=== PATIENT | female | born 1980 | race Hispanic/Latino ===

== ENCOUNTER → 2018-09-26 17:33 | Outpatient (CLI) | payer OTHER, SELFPAY ==
[2018-09-26 19:26] LABS: HCG Quantitative /Beta subunit 5975 mIU/mL
== END ==
PROVIDERS: Family Provider Nurse Practitioner; PCP Family Medicine; Visit Provider Nurse Practitioner Family
DX: N92.6 Irregular menstruation, unspecified (principal)
CPT/HCPCS: 36415; 84702

== ENCOUNTER 2018-10-29 19:25 | Emergency (ER) | payer OTHER, SELFPAY ==
[2018-10-29 19:29] VITALS: BP 135/80; PULSE 105; RESP 20; TEMP 36.3; O2SAT 100; BMI 223.5
--- NOTE | 2018-10-29 19:56 | DI.US.S_ITS ---
PROCEDURE: US OB <= 14 WEEKS FETUS INDICATIONS: 9 weeks, acute urinary retention, no previous US / care. OUTSIDE/PRIOR DATING DATA: Last menstrual period (LMP): 08/25/18. LMP-based estimated date of delivery (SHYLA): 06/21/19. First dating scan (date and location): 10/29/18. Estimated date of delivery (SHYLA) from first dating scan: 05/26/18. TECHNIQUE: Real-time scanning was performed of the fetus and maternal pelvic organs, with image documentation. Endovaginal scanning was also performed to better visualize the fetus and maternal ovaries. COMPARISON: None. FINDINGS: Embryo: Single live intrauterine is identified with crown-rump length measuring 3.2 cm corresponding to 10 weeks one day. heart tones are identified at 168 beats per minute. Maternal organs: Ovaries and straight a left ovarian corpus luteal cyst. Fundal fibroid is present. Moderate right renal maternal hydronephrosis. IMPRESSION: 1. Single live intrauterine with ultrasound gestational age day of 10 weeks one day corresponding to ultrasound SHYLA 05/26/18. 2. Recommend follow imaging at 20-22 weeks or dates and anatomy. 3. Moderate right maternal hydronephrosis. 4. Uterine fundal fibroid. Dictated by: Gala Goodson M.D. on 10/29/2018 at 21:09 Approved by: Gala Goodson M.D. on 10/29/2018 at 21:12
--- NOTE | 2018-10-29 20:06 | ED_ITS ---
HPI - <PALOMA Rodriguez - Last Filed: 10/29/18 23:09> General Chief complaint: Urogenital-Female Stated complaint: Can't Urinate, needs Cath Time Seen by Provider: 10/29/18 19:46 Source: patient Mode of arrival: ambulatory Limitations: no limitations History of Present Illness HPI Narrative: 37-year-old healthy female , current we 9 weeks , presents to the emergency department complaining of urinary tension and the inability to void. States that she was urinating this morning around 10 a.m. and her urine postop midsteam when she was unable to urinate after that. She tried to drink more water, attempted to relax, but was not able to urinate at. Patient presented to the emergency department complaining of significant bladder distention. She states that this has happened about 3 years ago but she was able to relax enough and was able to urinate without intervention. Patient denies fever, chills, chest pain, shortness of breath, flank pain, dysuria, v aginal discharge, abdominal pain, nausea, vomiting, or bowel changes. MD Complaint: other Patient : Yes Related Data Allergies Allergy/AdvReac Type Severity Reaction Status Date / Time No Known Drug Allergies Allergy Verified 10/29/18 19:33 Review of Systems <PALOMA Rodriguez - Last Filed: 10/29/18 23:09> Review of Systems REVIEW OF SYSTEMS: GENERAL: Denies fever or chills. HENT: No head trauma, hearing loss or sore throat. EYES: No loss of vision, double vision, eye pain, or irritation. CARDIOVASCULAR: No chest pain or syncope. RESPIRATORY: No shortness of breath or cough. GASTROINTESTINAL: No nausea, vomiting, diarrhea, or constipation. GENITOURINARY: Complains of urinary tension, see HPI. MUSCULOSKELETAL: No pain, weakness, or deformities. INTEGUMENTARY: No rash, lesions, or pruritus. NEURO: No numbness, tingling, memory loss, or confusion. PSYCH: No behavior or mood changes. PMFSH - <PALOMA Rodriguez - Last Filed: 10/29/18 23:09> Past Medical History Medical history: Reports no medical history Surgical history: Reports no surgical history Patient : Yes Exam <PALOMA Rodriguez - Last Filed: 10/29/18 23:09> Initial Vital Signs Initial Vital Signs: Vital Signs Temperature 97.4 F L 10/29/18 19:29 Pulse Rate 105 H 10/29/18 19:29 Respiratory Rate 20 10/29/18 19:29 Blood Pressure 135/80 10/29/18 19:29 Pulse Oximetry 100 10/29/18 19:29 PHYSICAL EXAMINATION: GENERAL: Well groomed, alert, and cooperative. Answers questions promptly and appropriately. Vital signs noted. HENT: Normocephalic, atraumatic. EYES: conjunctiva pink, sclera white, no periorbital swelling. CARDIOVASCULAR: S1 and S2 sounds normal. Regular rate and rhythm, no murmurs, clicks, or bruits. No pedal edema. RESPIRATORY: Normal respiratory rate, trachea midline, airway patent. No stridor, nasal flaring or accessory muscle use. Lungs are clear in all [place] wi thout wheeze, rhonchi, or crackles. GASTROINTESTINAL: Bowel sounds normoactive. Abdomen is soft and non-tender. No organomegaly. : Distended bladder palpated. No flank tenderness with palpation. MUSCULOSKELETAL: Normal gait and coordination. Equal tone and mass bilaterally. EXTREMITIES: CMS intact. Moves all extremities. SKIN: Warm, dry, soft, appropriate color for ethnicity. No lesions, rashes, or wounds. NEURO: Alert and Oriented X 3. Good coordination. No ataxia, or sensory def icits, or cognitive issues. PSYCH: Appropriate affect and mood. <Otilio Caballero DO - Last Filed: 10/29/18 23:17> Initial Vital Signs Initial Vital Signs: Vital Signs Temperature 97.4 F L 10/29/18 19:29 Pulse Rate 105 H 10/29/18 19:29 Respiratory Rate 20 10/29/18 19:29 Blood Pressure 135/80 10/29/18 19:29 Pulse Oximetry 100 10/29/18 19:29 Course <PALOMA Rodriguez - Last Filed: 10/29/18 23:09> Course Narrative: Patient stated she was feeling much better, 1.5 L of urine was drained after catheterization. Orders Ordered: ED Orders 10/29/18 19:52 Urinalysis and Microscopic Stat 10/29/18 19:56 US OB <= 14 weeks fetus Stat 10/29/18 21:45 Comprehensive Metabolic Panel Stat Consultations Consultation #1: Patient staffed with Dr. Caballero. Vital Signs - 8 hr 10/29/18 19:29 10/29/18 21:27 10/29/18 22:24 Temperature 97.4 F L Pulse Rate 105 H 85 81 Respiratory Rate 20 16 16 Blood Pressure 135/80 136/63 Blood Pressure [Right Arm] 128/61 Pulse Oximetry 100 99 100 <Otilio Caballero DO - Last Filed: 10/29/18 23:17> Orders Ordered: ED Orders 10/29/18 19:52 Urinalysis and Microscopic Stat 10/29/18 19:56 US OB <= 14 weeks fetus Stat 10/29/18 21:45 Comprehensive Metabolic Panel Stat Vital Signs - 8 hr 10/29/18 19:29 10/29/18 21:27 10/29/18 22:24 Temperature 97.4 F L Pulse Rate 105 H 85 81 Respiratory Rate 20 16 16 Blood Pressure 135/80 136/63 Blood Pressure [Right Arm] 128/61 Pulse Oximetry 100 99 100 MDM - OB/Uterine Contractions <PALOMA Rodriguez - Last Filed: 10/29/18 23:09> Medical Records Attestation: I reviewed the patient's medical records. Lab Data Attestation: I reviewed the patient's lab results. Result diagrams: 10/29/18 21:45 Lab Results 10/29/18 10/29/18 Range/Units 19:52 21:45 Sodium 137 (137-145) mmol/L Potassium 4.5 (3.4-5.1) mmol/L Chloride 103 (98-107) mmol/L Carbon Dioxide 25 (22-32) mmol/L BUN 9 (7-17) mg/dL Creatinine 0.50 L (0.52-1.04) mg/dL Estimated GFR > 60.0 (>60) mL/min BUN/Creatinine Ratio 18.0 (6-22) Glucose 93 (70-100) mg/dL Calcium 9.6 (8.4-10.2) mg/dL Total Bilirubin 0.6 (0.2-1.3) mg/dL AST 20 (14-36) IU/L ALT 15 (9-52) IU/L Alkaline Phosphatase 54 (38-126) U/L Total Protein 7.3 (6.3-8.2) g/dL Albumin 4.2 (3.5-5.0) g/dL Globulin 3.1 (1.7-4.1) g/dL Albumin/Globulin Ratio 1.4 (1.0-2.8) Urine Color Yellow Urine Appearance Clear Urine pH 7.0 (4.5-8.0) Ur Specific [place] 1.010 (1.000-1.035) Urine Protein Negative (Negative) Urine Glucose (UA) Negative (Negative) g/dL Urine Ketones Negative (NEGATIVE) Urine Occult Blood Negative (Negative) Urine Nitrate Negative (Negative) Urine Bilirubin Negative (NEGATIVE) Urine Urobilinogen 0.2 (0.2) E.U./dL Ur Leukocyte Esterase Negative (NEGATIVE) Urine RBC 0-1/hpf (0-5/HPF) Urine WBC 0-1/hpf (0-5/HPF) Ur Squamous Epith Cells 0-1 /hpf (0-5/HPF) Urine Bacteria None seen (None) Ur Culture Indicated? Cult not indicated MDM Narrative Medical decision making narrative: Likely symptoms are caused by urinary tension due to an obstruction as catheterization yielded urinary output. Little concern for renal dysfunction due to normal renal labs. Extensive conversation was had with patient about leaving the catheter in and then following up, however patient opted to remove the catheter and return to the emergency department if symptoms return. Patient instructed to follow up with primary care provider and/or Urology for further workup of issue. Consider further workup for possible obstruction such as renal stone or neurological disorder. <Otilio Caballero DO - Last Filed: 10/29/18 23:17> Lab Data Lab Results 10/29/18 10/29/18 Range/Units 19:52 21:45 Sodium 137 (137-145) mmol/L Potassium 4.5 (3.4-5.1) mmol/L Chloride 103 (98-107) mmol/L Carbon Dioxide 25 (22-32) mmol/L BUN 9 (7-17) mg/dL Creatinine 0.50 L (0.52-1.04) mg/dL Estimated GFR > 60.0 (>60) mL/min BUN/Creatinine Ratio 18.0 (6-22) Glucose 93 (70-100) mg/dL Calcium 9.6 (8.4-10.2) mg/dL Total Bilirubin 0.6 (0.2-1.3) mg/dL AST 20 (14-36) IU/L ALT 15 (9-52) IU/L Alkaline Phosphatase 54 (38-126) U/L Total Protein 7.3 (6.3-8.2) g/dL Albumin 4.2 (3.5-5.0) g/dL Globulin 3.1 (1.7-4.1) g/dL Albumin/Globulin Ratio 1.4 (1.0-2.8) Urine Color Yellow Urine Appearance Clear Urine pH 7.0 (4.5-8.0) Ur Specific [place] 1.010 (1.000-1.035) Urine Protein Negative (Negative) Urine Glucose (UA) Negative (Negative) g/dL Urine Ketones Negative (NEGATIVE) Urine Occult Blood Negative (Negative) Urine Nitrate Negative (Negative) Urine Bilirubin Negative (NEGATIVE) Urine Urobilinogen 0.2 (0.2) E.U./dL Ur Leukocyte Esterase Negative (NEGATIVE) Urine RBC 0-1/hpf (0-5/HPF) Urine WBC 0-1/hpf (0-5/HPF) Ur Squamous Epith Cells 0-1 /hpf (0-5/HPF) Urine Bacteria None seen (None) Ur Culture Indicated? Cult not indicated Discharge Plan Departure Patient Disposition: Home Clinical Impression: Acute urinary retention Discharge Date/Time: 10/29/18 22:24 Interventions: ED Discharge Assessment Last Done: 10/29/18 22:24 Instructions: DI for Urinary Retention in Women Activity Restrictions/Additional Instructions: Thank you for entrusting me with your care today. As discussed, your ultrasound showed that your baby is growing well. Your symptoms are most likely caused from urinary retention which we are unsure of the exact cause. Urinalysis did not show any infection, however we did see some water around your right kidney. As requested with removed the catheter, if you experience urinary retention, fevers, chest pain, or shortness of breath please return to emergency department. Please follow up with her primary care provider or urologist in the next week for further testing if needed. Referrals: Laureano De Luna MD [Primary Care Provider] - <Otilio Caballero DO - Last Filed: 10/29/18 23:17> Cosign ED Attending Antonia Attestation: I was available for consultation during this patient's emergency department encounter
--- NOTE | 2018-10-29 20:06 | PC.NURSE ---
9 weeks : . No bleeding, cramping, vaginal bleeding. c/o urinary retention w/o s/s of infection.
[2018-10-29 20:08] LABS: Bacteria Urine None Seen
[2018-10-29 20:10] LABS: Appearance Urine UA CLEAR; Bilirubin Urine UA NEGATIVE (NEGATIVE); Color Urine UA YELLOW; Glucose Urine UA NEGATIVE (Negative); Ketones Urine UA NEGATIVE (NEGATIVE); Leukocyte Esterase Urine UA NEGATIVE (NEGATIVE); Nitrite Urine UA NEGATIVE (Negative); Occult Blood Urine UA NEGATIVE (Negative); Protein Urine UA NEGATIVE (Negative); Urobilinogen Urine UA 0.2 E.U./dL (0.2)
[2018-10-29 20:22] LABS: Culture Indicated Urine Cult Not Indicated; RBC Urine 0-1/HPF (0-5/HPF); Squamous Epithelial Cell Urine 0-1 /HPF (0-5/HPF); WBC Urine 0-1/HPF (0-5/HPF)
[2018-10-29 21:27] VITALS: BP 128/61; PULSE 85; RESP 16; O2SAT 99
[2018-10-29 22:05] LABS: Alanine Aminotransferase 15 IU/L (9-52); Albumin 4.2 g/dL (3.5-5.0); Albumin Globulin Ratio 1.4 (1.0-2.8); Alkaline Phosphatase 54 U/L (38-126); Aspartate Aminotransferase 20 IU/L (14-36); Bilirubin Total 0.6 mg/dL (0.2-1.3); Blood Urea Nitrogen 9 mg/dL (7-17); Calcium 9.6 mg/dL (8.4-10.2); Carbon Dioxide 25 mmol/L (22-32); Chloride 103 mmol/L (98-107); Estimated Glomerular Filt Rate > 60.0 mL/min (>60); Globulin 3.1 g/dL (1.7-4.1); Glucose 93 mg/dL (70-100); HEMOLYSIS < 15 (0-50); Potassium 4.5 mmol/L (3.4-5.1); Sodium 137 mmol/L (137-145); Total Protein 7.3 g/dL (6.3-8.2)
[2018-10-29 22:24] VITALS: BP 136/63; PULSE 81; RESP 16; O2SAT 100
== END 2018-10-29 22:24 | disposition home or self-care (01) ==
PROVIDERS: Emergency Provider Nurse Practitioner; PCP Family Medicine
DX: R33.8 Other retention of urine (principal); Z33.1 Pregnant state, incidental
CPT/HCPCS: 36415; 51701; 76801; 80053; 81001; 99283; 99284

== ENCOUNTER → 2018-11-14 07:49 | Outpatient (CLI) | payer OTHER, SELFPAY ==
[2018-11-14 09:06] LABS: Add Manual Diff / Slide Review NO; Basophils Absolute Auto 0 /uL (0-100); Basophils Percent Auto 0.6 % (0-2); Eosinophils Absolute Auto 200 /uL (0-450); Eosinophils Percent Auto 2.8 % (2-4); Hematocrit 39.5 % (36-46); Hemoglobin 13.5 g/dL (12.0-16.0); Lymphocytes Absolute Auto 1300 /uL (1100-4500); Lymphocytes Percent Auto 17.6 % (25-40); Mean Corpuscular HGB Conc 34.1 % (30-36); Mean Corpuscular Hemoglobin 30.3 PG (26-34); Mean Corpuscular Volume 88.9 fL (80-100); Monocytes Absolute Auto 700 /uL (0-900); Monocytes Percent Auto 9.1 % (3-14); Neutrophils Absolute Auto 5300 /uL (1500-7000); Neutrophils Percent Auto 69.9 % (50-75); Platelet Count 163 X10^3/uL (150-400); Red Blood Cell Count 4.45 X10^6/uL (4.0-5.2); White Blood Cell Count 7.6 X10^3/uL (4.5-11.0)
[2018-11-14 10:06] LABS: Hepatitis B Surface Antigen NEGATIVE s/c (NEGATIVE); Rubella Antibody IgG 90.2 IU/mL (>15)
[2018-11-16 13:39] LABS: RPR Screen Nonreactive (Nonreactive)
== END ==
PROVIDERS: PCP Family Medicine; Visit Provider Midwife
DX: Z34.81 Encounter for supervision of other normal pregnancy, first trimester (principal)
CPT/HCPCS: 36415; 80055; 81420; 86850; 86900; 86901

== ENCOUNTER 2018-11-17 08:28 | Emergency (ER) | payer OTHER, SELFPAY ==
[2018-11-17 08:30] VITALS: BP 138/67; PULSE 75; RESP 17; O2SAT 97
--- NOTE | 2018-11-17 08:57 | ED.FEMALEGU ---
HPI - Female Genitourinary General Chief complaint: Urogenital-Female Stated complaint: bladder retention Time Seen by Provider: 11/17/18 08:40 Source: patient Mode of arrival: ambulatory Limitations: no limitations History of Present Illness HPI Narrative: Patient is a 37-year-old female currently 12 weeks presenting with inability to urinate. She has over 1000 in her bladder on bladder scan. She said she urinated around 2 a.m. but then it suddenly stopped. Urinary retention in the past, she was seen evaluated here on 10/29/2018 for the same. Onset (ago): hour(s) Location: suprapubic Related Data Allergies Allergy/AdvReac Type Severity Reaction Status Date / Time No Known Drug Allergies Allergy Verified 10/29/18 19:33 Review of Systems Review of Systems GENERAL: Denies chills, fatigue, malaise, fever, sweats, travel HEENT: Denies sinus pain, ear pain, sore throat, difficulty swallowing, neck pain RESPIRATORY: Denies dyspnea, cough, wheezing, hemoptysis, sputum. CARDIOVASCULAR: Denies chest pain, palpitations, orthopnea, edema GASTROINTESTINAL: Denies nausea, vomiting, abdominal pain, diarrhea, constipation, melena. : see HPI MUSCULOSKELETAL: Denies weakness, joint pain, or bony pain SKIN: No rash, no erythema, no pruritus NEUROLOGIC: Denies weakness, dizziness, headache, numbness, change in speech, confusion PSYCHIATRIC: No concerning psychosocial issues. 12 point review of systems is negative except for those stated above and HPI PFSH Medical History Urinary retention (Acute) Family History (Updated 05/22/16 @ 00:00 by Conversion Provider) Mother Age: 71 Cancer Essential hypertension High cholesterol Social History Smoking Status: Never smoker Family History Mother Age: 71 Cancer Essential hypertension High cholesterol Social History Smoking Status: Never smoker Exam Initial Vital Signs Initial Vital Signs: Vital Signs Pulse Rate 75 11/17/18 08:30 Respiratory Rate 17 11/17/18 08:30 Blood Pressure 138/67 11/17/18 08:30 Pulse Oximetry 97 11/17/18 08:30 GENERAL: Patient in severe pain CARDIOVASCULAR: peripheral pulses in tact, cap refill <2 sec RESPIRATORY: No respiratory distress, speaks in full sentences without difficulty ABDOMEN: Tender suprapubic no guarding or rebound : Large cystocele present hemorrhoids urethra difficult to find. EXTREMITIES: Normal range of motion, no clubbing or edema. Neurovascularly intact NEUROLOGICAL: Cranial nerves II through XII grossly intact. Normal gait and speech. SKIN: Warm, dry, no petechiae, no rashes or lesions. Course Vital Signs - 8 hr 11/17/18 08:30 11/17/18 09:04 11/17/18 10:00 Temperature 97 F L Pulse Rate 75 75 70 Respiratory Rate 17 17 17 Blood Pressure 136/62 Blood Pressure [Right Arm] 138/67 110/59 L Pulse Oximetry 97 97 100 11/17/18 10:10 Temperature Pulse Rate 73 Respiratory Rate 18 Blood Pressure Blood Pressure [Right Arm] 110/59 L Pulse Oximetry 100 MDM - Female Genitourinary Lab Data Urine Dip Bedside Urine Glucose Negative Bedside Urine Bilirubin - Negative Bedside Urine Ketone - Negative Urine Specific [place] 1.015 Bedside Urine Occult Blood - Negative Bedside Urine pH 6.0 Bedside Urine Protein - Negative Bedside Urine Urobilinogen - Negative Bedside Urine Nitrite - Negative Bedside Urine Leukocytes - Negative Esterase MDM Narrative Medical decision making narrative: Dr. Sharp graciously assisted with Kaplan catheter placement, 1300mL. Just with patient leaving catheter in place for the next few days. She only has a talent acquisition consultant she does not have a senior maintenance technician. I discussed with her that she probably does need a senior maintenance technician with these issues which she does agree to. Nurse taught her how to remove the Kaplan catheter. There is no sign of infection at this time however I did tell her she needs to be rechecked for possible infection, due to difficult Kaplan catheter placement. Discharge Plan Departure Patient Disposition: Home Clinical Impression: Acute urinary retention Discharge Date/Time: 11/17/18 10:20 Interventions: ED Discharge Assessment Last Done: 11/17/18 10:20 Instructions: DI for Urinary Retention in Women Activity Restrictions/Additional Instructions: *You have been diagnosed with urinary retention *What to do: We Kaplan catheter in place for about 3 days then remove. Use leg bag during the day and change to a larger bag at night. You are at risk for infection, however most people do well I do recommend to have repeat urinalysis done next week after Kaplan catheter has been removed *Continue to take medications as directed *Follow up with your primary care provider in 2-3 days, Call listed OBGYN's *Return to ER if you should have decreased urine output, increased abdominal pain, vaginal bleeding or any new, worsening or concerning symptoms Referrals: Roopa Hutchison MD [Physician] - Nilda Sharp MD [Physician] - Aquiles Davenport MD [Physician] - Celeste Fam MD [Physician] - Laureano Alcantara MD [Physician] - Isadora Thomson DO [Physician] - Jazzmine Piña MD [Physician] - Laureano De Luna MD [Primary Care Provider] - Lynette Levy DO [Physician] -
[2018-11-17 09:04] VITALS: BP 136/62; PULSE 75; RESP 17; TEMP 36.1; O2SAT 97
--- NOTE | 2018-11-17 09:12 | PC.NURSE ---
catheter placed by dr. taylor/
[2018-11-17 10:00] VITALS: BP 110/59; PULSE 70; RESP 17; O2SAT 100
[2018-11-17 10:10] VITALS: BP 110/59; PULSE 73; RESP 18; O2SAT 100
--- NOTE | 2018-11-21 06:33 | PM.CN ---
History of Present Illness Date Patient Seen: 11/17/18 Time Patient Seen: 08:45 Chief complaint: bladder retention Reason for consult: Unable to empty bladder Narrative: Patient is a 37-year-old 2 para 1 at 12 weeks gestation with urinary retention Patient has 1200 cc of urine in the bladder. They have been unable to empty her bladder in the emergency department. [facility] Medical History Urinary retention (Acute) Family History (Updated 05/22/16 @ 00:00 by Conversion Provider) Mother Age: 71 Cancer Essential hypertension High cholesterol Social History Smoking Status: Never smoker Family History Mother Age: 71 Cancer Essential hypertension High cholesterol Social History Smoking Status: Never smoker Meds Allergies Allergy/AdvReac Type Severity Reaction Status Date / Time No Known Drug Allergies Allergy Verified 10/29/18 19:33 Exam Vital Signs (past 8 hours): Oxygen Delivery Method Room Air Narrative Exam Narrative: Generally: A well-developed, well-nourished female in moderate distress secondary to pain from distended bladder Procedure: The area around the urethra was prepped x3 with Betadine. One nurse placed her fingers into the vagina to reduce the cystocele. A latex-free catheter was placed into the bladder and the bulb filled to 10 cc. 1500 cc of urine drained from the bladder. This was clear yellow urine. Assessment & Plan (1) 12 weeks gestation of : Current visit: No Status: Acute (2) Acute urinary retention: Current visit: No Status: Acute Assessment & Plan narrative: Assessment: 37-year-old 2 para 1 at 12 weeks gestation with acute urinary retention Plan: Kaplan catheter placement as above Patient instructed to leave the catheter in place for 24 hr Patient will remove the catheter tomorrow Patient was given a few in and out cath kits if acute urinary retention recurs Follow up with her audio technician as scheduled
--- NOTE | 2018-11-21 06:36 | P.CONS_ITS ---
History of Present Illness Date Patient Seen: 11/17/18 Time Patient Seen: 08:45 Chief complaint: bladder retention Reason for consult: Unable to empty bladder Narrative: Patient is a 37-year-old 2 para 1 at 12 weeks gestation with urinary retention Patient has 1200 cc of urine in the bladder. They have been unable to empty her bladder in the emergency department. [facility] Medical History Urinary retention (Acute) Family History (Updated 05/22/16 @ 00:00 by Conversion Provider) Mother Age: 71 Cancer Essential hypertension High cholesterol Social History Smoking Status: Never smoker Family History Mother Age: 71 Cancer Essential hypertension High cholesterol Social History Smoking Status: Never smoker Meds Allergies Allergy/AdvReac Type Severity Reaction Status Date / Time No Known Drug Allergies Allergy Verified 10/29/18 19:33 Exam Vital Signs (past 8 hours): Oxygen Delivery Method Room Air Narrative Exam Narrative: Generally: A well-developed, well-nourished female in moderate distress secondary to pain from distended bladder Procedure: The area around the urethra was prepped x3 with Betadine. One nurse placed her fingers into the vagina to reduce the cystocele. A latex-free catheter was placed into the bladder and the bulb filled to 10 cc. 1500 cc of urine drained from the bladder. This was clear yellow urine. Assessment & Plan (1) 12 weeks gestation of : Current visit: No Status: Acute (2) Acute urinary retention: Current visit: No Status: Acute Assessment & Plan narrative: Assessment: 37-year-old 2 para 1 at 12 weeks gestation with acute urinary retention Plan: Kaplan catheter placement as above Patient instructed to leave the catheter in place for 24 hr Patient will remove the catheter tomorrow Patient was given a few in and out cath kits if acute urinary retention recurs Follow up with her awake overnight counselor as scheduled
== END 2018-11-17 10:20 | disposition home or self-care (01) ==
PROVIDERS: Emergency Provider Emergency Medicine; PCP Family Medicine
DX: R33.8 Other retention of urine (principal)
CPT/HCPCS: 51701; 51705; 51798; 81003; 99283; 99284